=== PATIENT | male | born 1955 | race Caucasian/White ===

== ENCOUNTER 2022-07-15 11:26 | Emergency (ER) | payer OTHER, MEDICARE ==
--- OUTSIDE RECORDS SUMMARY | 2022-07-15 11:31 | XMS REPORT | Continuity of Care Document ---
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 RELEASE 14:59: mouth at [place] ([facility] 11 bedtime. Medica l 500 mg SR Branch tablet glimepiride Yes 2mg Take 2 mg U nivers (AMARYL) 1 7-20 by mouth ity o f mg tablet 14:59: daily with [place] 11 breakfast. Medical Branch IBUPROFEN, Yes 400mg 400 mg. Uni vers BULK, MISC 7-20 ity of 14:59: [place] [address] Medical Branch glimepiride Yes 2mg Take 2 mg U nivers (AMARYL) 1 7-20 by mouth ity o f mg tablet 14:59: daily with [place] [address] [facility] TR Yes 500mg Take 500 Uni vers SUSTAINED 7-20 mg by ity of RELEASE 14:59: mouth at [place] ([facility] 11 bedtime. Medica l 500 mg SR Branch tablet [facility] Yes 500mg Take 500 Uni vers SUSTAINED 7-20 mg by ity of RELEASE 14:59: mouth at [place] ([facility] 11 bedtime. Medica l 500 mg SR Branch tablet IBUPROFEN, Yes 400mg 400 mg. Uni vers BULK, MISC 7-20 ity of 14:59: [place] [address] Medical [place] glimepiride Yes 2mg Take 2 mg U nivers (AMARYL) 1 7-20 by mouth ity o f mg tablet 14:59: daily with [place] 11 breakfast. [facility] Take 500 Uni vers SUSTAINED 7-20 mg by ity of RELEASE 14:59: mouth at [place] ([facility] 11 bedtime. Medica l 500 mg SR Branch tablet IBUPROFEN, Yes 400mg 400 mg. Uni vers BULK, MISC 7-20 ity of 14:59: [place] [address] Medical Branch glimepiride Yes 2mg Take 2 mg U nivers (AMARYL) 1 7-20 by mouth ity o f mg tablet 14:59: daily with [place] [address] [facility] TR Yes 500mg Take 500 Uni vers SUSTAINED 7-20 mg by ity of RELEASE 14:59: mouth at [place] ([facility]) 11 bedtime. Medica l 500 mg SR Branch tablet IBUPROFEN, Yes 400mg 400 mg. Uni vers BULK, MISC 7-20 ity of 14:59: [place] [address] Medical [place] glimepiride Yes 2mg Take 2 mg U nivers (AMARYL) 1 7-20 by mouth ity o f mg tablet 14:59: daily with [place] 11 breakfast. [facility] TR Yes 500mg Take 500 Uni vers SUSTAINED 7-20 mg by ity of RELEASE 14:59: mouth at [place] ([facility]) 11 bedtime. Medica l 500 mg SR Branch tablet IBUPROFEN, Yes 400mg 400 mg. Uni vers BULK, MISC 7-20 ity of 14:59: [place] 11 Medical Branch glimepiride Yes 2mg Take 2 mg U nivers (AMARYL) 1 7-20 by mouth ity o f mg tablet 14:59: daily with [place] 11 breakfast. [facility] TR Yes 500mg Take 500 Uni vers SUSTAINED 7-20 mg by ity of RELEASE 14:59: mouth at [place] ([facility]) 11 bedtime. Medica l 500 mg SR Branch tablet IBUPROFEN, Yes 400mg 400 mg. Uni vers BULK, MISC 7-20 ity of 14:59: [place] 11 Medical Branch glimepiride Yes 2mg Take 2 mg U nivers (AMARYL) 1 7-20 by mouth ity o f mg tablet 14:59: daily with [place] [address] [facility] TR Yes 500mg Take 500 Uni vers SUSTAINED 7-20 mg by ity of RELEASE 14:59: mouth at [place] ([facility]) 11 bedtime. Medica l 500 mg SR Branch tablet IBUPROFEN, Yes 400mg 400 mg. Uni vers BULK, MISC 7-20 ity of 14:59: [place] 11 Medical Branch glimepiride Yes 2mg Take 2 mg U nivers (AMARYL) 1 7-20 by mouth ity o f mg tablet 14:59: daily with [place] [address] [facility] TR Yes 500mg Take 500 Uni vers SUSTAINED 7-20 mg by ity of RELEASE 14:59: mouth at [place] ([facility]) 11 bedtime. Medica l 500 mg SR Branch tablet hydrocodone Yes 1{tbl} Take 1 Tab Univers -acetaminop 7-20 by mouth ity of hen (NORCO) 00:00: every 6 Mehdi as 10-325 mg 00 (six) Medical tablet hours as Branch needed for Pain. hydrocodone 2011- Yes 1{tbl} Take 1 Tab Univers -acetaminop 7-20 by mouth ity of [place] ([place]) 00:00: every 6 Mehdi as 10-325 mg 00 (six) Medical tablet hours as Branch needed for Pain. hydrocodone 2011- Yes 1{tbl} Take 1 Tab Univers -acetaminop 7-20 by mouth ity of hen ([place]) 00:00: every 6 Mehdi as 10-325 mg 00 (six) Medical tablet hours as Branch needed for Pain. hydrocodone Yes 1{tbl} Take 1 Tab Univers -acetaminop 7-20 by mouth ity of [place] ([place]) 00:00: every 6 Mehdi as 10-325 mg 00 (six) Medical tablet hours as Branch needed for Pain. hydrocodone Yes 1{tbl} Take 1 Tab Univers -acetaminop 7-20 by mouth ity of [place] ([place]) 00:00: every 6 Mehdi as 10-325 mg 00 (six) Medical tablet hours as Branch needed for Pain. hydrocodone Yes 1{tbl} Take 1 Tab Univers -acetaminop 7-20 by mouth ity of [place] ([place]) 00:00: every 6 Mehdi as 10-325 mg 00 (six) Medical tablet hours as Branch needed for Pain. hydrocodone Yes 1{tbl} Take 1 Tab Univers -acetaminop 7-20 by mouth ity of [place] ([place]) 00:00: every 6 Mehdi as 10-325 mg 00 (six) Medical tablet hours as Branch needed for Pain. hydrocodone Yes 1{tbl} Take 1 Tab Univers -acetaminop 7-20 by mouth ity of [place] ([place]) 00:00: every 6 Mehdi as 10-325 mg 00 (six) Medical tablet hours as Branch needed for Pain. hydrocodone 2011-0 Yes 1{tbl} Take 1 Tab Univers -acetaminop 7-20 by mouth ity of [place] ([place]) 00:00: every 6 Mehdi as 10-325 mg 00 (six) Medical tablet hours as Branch needed for Pain. hydrocodone 2011- Yes 1{tbl} Take 1 Tab Univers -acetaminop 7-20 by mouth ity of [place] ([place]) 00:00: every 6 Mehdi as 10-325 mg 00 (six) Medical tablet hours as Branch needed for Pain. hydrocodone 2011-0 Yes 1{tbl} Take 1 Tab Univers -acetaminop 7-20 by mouth ity of [place] ([place]) 00:00: every 6 Mehdi as 10-325 mg 00 (six) Medical tablet hours as Branch needed for Pain. hydrocodone Yes 1{tbl} Take 1 Tab Univers -acetaminop 7-20 by mouth ity of [place] ([place]) 00:00: every 6 Mehdi as 10-325 mg 00 (six) Medical tablet hours as Branch needed for Pain. hydrocodone Yes 1{tbl} Take 1 Tab Univers -acetaminop 7-20 by mouth ity of [place] ([place]) 00:00: every 6 Mehdi as 10-325 mg 00 (six) Medical tablet hours as Branch needed for Pain. hydrocodone Yes 1{tbl} Take 1 Tab Univers -acetaminop 7-20 by mouth ity of [place] ([place]) 00:00: every 6 Mehdi as 10-325 mg 00 (six) Medical tablet hours as Branch needed for Pain. hydrocodone Yes 1{tbl} Take 1 Tab Univers -acetaminop 7-20 by mouth ity of hen ([place]) 00:00: every 6 Mehdi as 10-325 mg 00 (six) Medical tablet hours as Branch needed for Pain. hydrocodone Yes 1{tbl} Take 1 Tab Univers -acetaminop 7-20 by mouth ity of hen ([place]) 00:00: every 6 Mehdi as 10-325 mg 00 (six) Medical tablet hours as Branch needed for Pain. hydrocodone 2011- Yes 1{tbl} Take 1 Tab Univers -acetaminop 7-20 by mouth ity of hen ([place]) 00:00: every 6 Mehdi as 10-325 mg 00 (six) Medical tablet hours as Branch needed for Pain. hydrocodone 2011- Yes 1{tbl} Take 1 Tab Univers -acetaminop 7-20 by mouth ity of hen ([place]) 00:00: every 6 Mehdi as 10-325 mg 00 (six) Medical tablet hours as Branch needed for Pain. hydrocodone 2011- Yes 1{tbl} Take 1 Tab Univers -acetaminop 7-20 by mouth ity of hen ([place]) 00:00: every 6 Mehdi as 10-325 mg 00 (six) Medical tablet hours as Branch needed for Pain. Vital Signs Vital Name Observation Time Observation Value Comments Source Systolic blood 2020-03-23 14:14:00 109 mm[Hg] [facility] of [place] pressure Medical Branch Diastolic blood 2020-03-23 14:14:00 67 mm[Hg] Unive rsity of [facility] Medical Branch Heart rate 2020-03-23 14:14:00 73 /min [facility] ty [facility] [place] Medical Branch Body height 2020-03-23 14:14:00 177.8 cm Universi ty of [facility] Branch Body weight 2020-03-23 14:14:00 108.863 kg Universi ty of [facility] Branch BMI 2020-03-23 14:14:00 34.44 kg/m2 Universi ty of [facility] Branch Systolic blood 2020-03-16 14:25:00 99 mm[Hg] Univer sity of [place] pressure [facility] Branch Diastolic blood 2020-03-16 14:25:00 66 mm[Hg] Unive rsity of [facility] [place] Branch Heart rate 2020-03-16 14:25:00 86 /min [facility] ty [facility] [place] [facility] Branch Body height 2020-03-16 14:25:00 177.8 cm [facility] [place] [facility] Branch Body weight 2020-03-16 14:25:00 108.863 kg [facility] [place] [facility] Branch BMI 2020-03-16 14:25:00 34.44 kg/m2 Universi ty of [facility] Branch Systolic blood 2020-03-09 14:33:00 90 mm[Hg] Univer sity of [facility] Medical Branch Diastolic blood 2020-03-09 14:33:00 61 mm[Hg] Unive rsity of [place] pressure Medical Branch Heart rate 2020-03-09 14:33:00 65 /min [facility] [place] [facility] Body height 2020-03-09 14:33:00 177.8 cm [facility] [place] [facility] Branch Body weight 2020-03-09 14:33:00 108.863 kg [facility] [place] [facility] Branch BMI 2020-03-09 14:33:00 34.44 kg/m2 Universi ty of [facility] Branch Systolic blood 2020-03-04 14:17:00 101 mm[Hg] [facility]iver [facility]ity of [place] pressure Medical Branch Diastolic blood 2020-03-04 14:17:00 63 mm[Hg] Unive rsity of [place] pressure [facility] Branch Heart rate 2020-03-04 14:17:00 84 /min [facility] [place] [facility] Branch Body height 2020-03-04 14:17:00 176.5 cm Universi ty of [facility] Branch Body weight 2020-03-04 14:17:00 108.863 kg Universi ty of [facility] Branch BMI 2020-03-04 14:17:00 34.93 kg/m2 Universi ty of [facility] Branch Systolic blood 2020-02-26 14:27:00 98 mm[Hg] [facility]ity of [place] pressure Medical Branch Diastolic blood 2020-02-26 14:27:00 62 mm[Hg] Unive rsity of [facility] [place] Branch Heart rate 2020-02-26 14:27:00 79 /min Universi ty of [facility] Branch Body weight 2020-02-26 14:27:00 108.863 kg Universi ty of [facility] Branch BMI 2020-02-26 14:27:00 35.44 kg/m2 Universi ty of [facility] Branch Systolic blood 2020-02-19 13:58:00 109 mm[Hg] [facility] of [place] pressure Medical Branch Diastolic blood 2020-02-19 13:58:00 71 mm[Hg] Unive rsity of [facility] Branch Heart rate 2020-02-19 13:58:00 52 /min [facility] [place] [facility] Branch Body weight 2020-02-19 13:58:00 108.863 kg [facility] [place] [facility] BMI 2020-02-19 13:58:00 35.44 kg/m2 Universi ty of [facility] Branch Body height 2020-01-28 19:09:00 175.3 cm Universi ty of [facility] Branch Body weight 2020-01-28 19:09:00 108.863 kg [facility] [place] [facility] Branch BMI 2020-01-28 19:09:00 35.44 kg/m2 Universi ty of [facility] Branch Procedures Procedure Date / Time Performing Clinician Source Performed MEDICATION CORRESPONDENCE 2020-01-30 05:01:00 Doctor Unassigned, [facility] [place] Medical Branch ASSIGNMENT OF BENEFITS 2020-01-28 19:08:17 [facility] [place] [facility] Encounters Start End Encounter Admission Attending Care Care Encounter Source Date/Time Date/Time Type Type Clinicians Facility Department ID 2021-01-20 2021-01-20 Telephone Rao [facility] [id number] [id number] Univers 00:00:00 00:00:00 Sharon Castro [facility] [id number] it y of [place] [id number] Mehdi as Professio [phone] Me dical nal [address] [place] [address] 2020-08-16 2020-08-16 Patient Kvng [facility] [id number] Univers 00:00:00 00:00:00 Outreach Kye [facility] [id number] i ty of [facility] [id number] [id number] Me dical [address] [place] 2020-03-23 2020-03-23 Office [facility] [id number] Univers 09:07:38 09:46:42 Visit [facility] [id number] it y of Surgical [id number] Mehdi as Specialti [phone] Me dical es 198 [facility] 2020-03-23 2020-03-23 Outpatient R YEIMI [facility] [id number] Univers 09:30:00 09:30:00 [facility] 2020-03-16 2020-03-16 Office [facility] [id number] Univers 09:18:51 10:04:26 Visit [facility] [id number] it y of Surgical [id number] Mehdi as Specialti [id number] Me dical es 198 [facility] 2020-03-16 2020-03-16 [facility] [id number] Univers 09:30:00 09:30:00 [facility] 2020-03-09 2020-03-09 [facility] [id number] Univers 09:20:52 09:48:51 Visit [facility] [id number] it y of Surgical [id number] Mehdi as Specialti [phone] Me dical es 198 [facility] 2020-03-09 2020-03-09 [facility] [id number] Univers 09:30:00 09:30:[address] [facility] 2020-03-04 2020-03-04 Office [facility] 1.2.840.114 [id number] Univers 09:15:11 09:43:21 Visit [facility] [id number] it y of Surgical [id number] Mehdi as Specialti [phone] Me dical es 198 [facility] 2020-03-04 2020-03-04 [facility] [id number] Univers 09:30:00 09:30:[address] [facility] 2020-02-26 2020-02-26 Office [facility] [id number] Univers 09:18:16 10:12:10 Visit [facility] [id number] it y of Surgical [id number] Mehdi as Specialti [id number] Co dical es 198 [facility] 2020-02-26 2020-02-26 [facility] [id number] Univers 09:30:00 09:30:[address] [facility] 2020-02-19 2020-02-19 Office [facility] 1.2.840.114 [id number] Univers 08:47:38 09:07:50 Visit [facility] [id number] it y of Surgical [id number] Mehdi as Specialti [phone] Me dical es 198 [facility] 2020-02-19 2020-02-19 [facility] [id number] Univers 09:00:00 09:00:[address] [facility] 2020-01-30 2020-01-30 Orders Doctor REYES 1.2.840.114 [id number] Univers 00:00:00 00:00:00 Only Unassigned, KAMLESH [id number] ity of [place] [facility] [id number] Mehdi as [phone] [facility] 009 Branch 2020-01-28 2020-01-28 [facility] [id number] Univers 14:26:21 23:59:00 Encounter Sharon Castro [facility] [id number] ity of Surgical [id number] Mehdi as Specialti [id number] Co dical es 809 [facility] 2020-01-28 2020-01-28 [facility] [id number] Univers 14:05:13 14:50:56 Visit Sharon Castro [facility] [id number] it y of Surgical [id number] Mehdi as Specialti [phone] Co dical es 198 [facility] 2020-01-28 2020-01-28 [facility] [id number] Univers 14:15:00 14:15:[address] [facility] 2020-01-28 2020-01-28 Orders Doctor ERIC [id number] Univers 00:00:00 00:00:00 Only Unassigned, KAMLESH [id number] ity of [place] [facility] [id number] Mehdi as [phone] [place] [address] Branch Results This patient has no known results.
[2022-07-15] MEDS ORDERED: D10W 250 ML IV ONE (11:42)
[2022-07-15 12:20] LABS: Absolute Lymphocytes (CBC) 1.4 K/uL (0.7-4.9); Hematocrit 42.1 % (39.6-49.0); Lymphocytes % 17.6 % (15.3-44.8); MCV 90.9 fL (80-100); MPV 9.7 fL (7.6-11.3); RBC Red Blood Cell Count 4.63 M/uL (4.33-5.43)
[2022-07-15 12:31] LABS: Protime INR 1.14
[2022-07-15] MEDS ORDERED: NA CHLORIDE 0.9% 1,000 ML ONE (12:34)
--- NOTE | 2022-07-15 12:50 | RAD REPORT ---
EXAM DESCRIPTION: CT - Head Brain Wo Cont - 07/15/2022 12:38 pm CLINICAL HISTORY: Syncope COMPARISON: None. TECHNIQUE: Computed axial tomography of the head was obtained. IV contrast was not requested. All CT scans are performed using dose optimization technique as appropriate and may include automated exposure control or mA/KV adjustment according to patient size. FINDINGS: An intracranial bleed is not seen . The ventricles are normal in caliber. No significant hypodense areas within the brain visualized No extra-axial fluid collection is noted. Fluid within the sinuses/ mastoids is not seen. IMPRESSION: No acute intracranial abnormality is seen. If patient's symptoms persist MRI of the bra in would be recommended.
[2022-07-15 12:51] LABS: Potassium 4.3 mmol/L (3.5-5.1); Troponin High Sensitivity 7.7 pg/mL (<58.9)
--- NOTE | 2022-07-15 14:47 | ER ---
Nurse's Notes [facility] Name: Yaya Montanez Age: 66 yrs Sex: Male : 1955 Arrival Date: 07/15/2022 Time: 11:39 Bed 7 Private MD: Diagnosis: Syncope;Hypoglycemia, unspecified;Persistent atrial fibrillation;Hypotension, unspecified Presentation: 07/15 11:39 Chief complaint: EMS states: [employer] [employer]. NOTED bp HYPOTENSIVE AND HYPOGLEMIIC ON SCENE, INITIAL BGL 72. Coronavirus screen: At this time, the client does not indicate any symptoms associated with coronavirus-19. Ebola Screen: No symptoms or risks identified at this time. Initial Sepsis Screen: Does the patient meet any 2 criteria? No. Patient's initial sepsis screen is negative. Does the patient have a suspected source of infection?. Risk Assessment: Do you want to hurt yourself or someone else? Patient reports no desire to harm self or others. Onset of symptoms is unknown. 11:39 Method Of Arrival: EMS: [facility] bp 11:39 Acuity: CHRISTY 3 bp Triage Assessment: 12:06 General: Appears in no apparent distress. comfortable, Behavior is calm, cooperative, bp appropriate for age. Pain: Denies pain. EENT: No deficits noted. Neuro: Level of Consciousness is awake, alert, obeys commands, Oriented to Appropriate for age. Cardiovascular: No deficits noted. Respiratory: No deficits noted. GI: No signs and/or symptoms were reported involving the gastrointestinal system. : No signs and/or symptoms were reported regarding the genitourinary system. Derm: No deficits noted. Musculoskeletal: No deficits noted. - Immunization history:: Adult Immunizations up to date. - Social history:: Smoking status: Patient denies any tobacco usage or history of. - Family history:: not pertinent. - Hospitalizations: : No recent hospitalization is reported. Screenin:06 [facility] ED Fall Risk Assessment (Adult) History of falling in the last 3 months, bp including since admission No falls in past 3 months (0 pts). Abuse screen: Denies threats or abuse. Denies injuries from another. Nutritional screening: No deficits noted. Tuberculosis screening: No symptoms or risk factors identified. Assessment: 12:06 General: SEE TRIAGE NOTE. bp 12:45 Reassessment: PT RETURNED FROM CT. bp 13:12 Reassessment: PO CHALLENGE PENDING. bp 14:45 Reassessment: PT REFUSING ADMIT OR FURTHER HEALTHCARE ACTIVITIES. COUNSELLED TO REMAIN bp BY STAFF AND PROVIDER, BUT REFUSING. PT ADVISED TO RETURN TO THE ER IF S/S RETURN OR WORSEN. Vital Signs: 12:06 BP 78 / 49; Pulse 66; Resp 12; Pulse Ox 100% ; bp 13:12 BP 88 / 59; Pulse 63; Resp 18; Pulse Ox 100% ; bp 14:44 BP 105 / 69; Pulse 73; Resp 13; Pulse Ox 100% ; bp ED Course: 11:39 Patient arrived in ED. mm9 11:39 Cal Wilkes, RN is Primary Nurse. bp 11:51 Pro Lawrence MD is Attending Physician. rn 11:54 Triage completed. bp 11:55 Diet: Patient is NPO. mm9 11:55 Patient has correct armband on for positive identification. Placed in gown. Bed in low mm9 position. Call light in reach. Side rails up X 1. Adult w/ patient. Warm blanket given. Pillow given. Client placed on continuous cardiac and pulse oximetry monitoring. NIBP monitoring applied. equipment monitor phototypesetting on. Pulse ox on. NIBP on. 11:56 Maintain EMS IV. Dressing intact. Good blood return noted. Site clean \T\ dry. mm9 12:06 Arm band placed on. bp 12:12 Initial lab(s) drawn, by me, sent to lab. EKG done, by ED staff, reviewed by Pro Lawrence MD. 12:13 BNP Sent. mm9 12:13 Basic Metabolic Panel Sent. mm9 12:13 CBC with Diff Sent. mm9 12:13 High Sensitivity Troponin Sent. mm9 12:13 Protime (+inr) Sent. mm9 12:13 Ptt, Activated Sent. mm9 12:40 CT Head Brain wo Cont In Process Unspecified. EDMS 14:45 Carmine Green MD is Referral Physician. rn 15:02 No provider procedures requiring assistance completed. IV discontinued, intact, bp bleeding controlled, No redness/swelling at site. Pressure dressing applied. Administered Medications: 12:40 Drug: NS 0.9% 1000 ml Route: IV; Rate: 1000 ml; Site: left antecubital; bp Outcome: 14:46 Discharge ordered by . rn 15:02 Discharged to home ambulatory. bp 15:02 Condition: stable 15:02 Discharge instructions given to patient, Instructed on discharge instructions, follow up and referral plans. Demonstrated understanding of instructions, follow-up care. 15:03 Patient left the ED. bp Signatures: Dispatcher [employer] EDMS Pro Lawrence MD MD rn Peltier, Brian, RN RN bp Martinez, Maria mm9
--- NOTE | 2022-07-15 14:47 | EDPHYS ---
Physician Documentation [facility] Name: Yaya Montanez Age: 66 yrs Sex: Male : 1955 Arrival Date: 07/15/2022 Time: 11:39 Bed 7 Private MD: ED Physician Pro Lawrence HPI: 07/15 12:05 This 66 yrs old Male presents to ER via EMS with complaints of low blood sugar, syncope.rn 12:06 The patient has experienced syncope. Onset: The symptoms/episode began/occurred just rn prior to arrival. Duration: This was a single episode. Associated injury: The patient did not suffer any apparent associated injury. Associated signs and symptoms: Pertinent positives: confusion, blurred vision, Pertinent negatives: abdominal pain, chest pain, headache, shortness of breath, weakness. Current symptoms: Currently, the patient is not experiencing any symptoms. It is unknown whether or not the patient has had similar symptoms in the past. The patient has not recently seen a physician. Pt and family report blurred vision, happens almost daily for months, was seated watching a game when exhibited decreased responsiveness, some twitching, unknown duration, 911 called, noted to have blood sugars of 70s and 60s, given glucose and now back to baseline. NO chest pain/sob/abd pain. No complaints currently. No blurred vision.. - Immunization history:: Adult Immunizations up to date. - Social history:: Smoking status: Patient denies any tobacco usage or history of. - Family history:: not pertinent. - Hospitalizations: : No recent hospitalization is reported. ROS: 12:06 Constitutional: Negative for fever, chills, and weight loss, Eyes: Negative for injury, rn pain, redness, and discharge, Neck: Negative for injury, pain, and swelling, Cardiovascular: Negative for chest pain, and edema, Respiratory: Negative for shortness of breath, cough, wheezing, and pleuritic chest pain, Abdomen/GI: Negative for abdominal pain, nausea, vomiting, diarrhea, and constipation, Back: Negative for injury and pain, MS/Extremity: Negative for injury and deformity, Skin: Negative for injury, rash, and discoloration, Neuro: Negative for headache, numbness, tingling Exam: 12:06 Constitutional: This is a well developed, well nourished patient who is awake, alert, rn and in no acute distress. Head/Face: Normocephalic, atraumatic. Eyes: Pupils equal round and reactive to light, extra-ocular motions intact. Cardiovascular: Regular rate, irregular rhythm Respiratory: No increased work of breathing, no retractions or nasal flaring. Abdomen/GI: soft, non-tender Skin: Warm, dry MS/ Extremity: Pulses equal, no cyanosis. Neuro: Awake and alert, GCS 15, oriented to person, place, time, and situation. Cranial nerves II-XII grossly intact. Motor strength 5/5 in all extremities. Sensory grossly intact. Cerebellar exam normal. 15:00 ECG was reviewed by the Attending Physician. rn Vital Signs: 12:06 BP 78 / 49; Pulse 66; Resp 12; Pulse Ox 100% ; bp 13:12 BP 88 / 59; Pulse 63; Resp 18; Pulse Ox 100% ; bp 14:44 BP 105 / 69; Pulse 73; Resp 13; Pulse Ox 100% ; bp MDM: 11:51 Patient medically screened. rn 14:39 Differential Diagnosis: cardiac arrhythmia, cerebrovascular accident, emotional rn response, idiopathic syncope, seizure, transient ischemic attack, vasovagal episode, heart failure, new afib, cardiogenic shock, AMI, dehydration, medication side effect, hypoglycemia. Data reviewed: vital signs, nurses notes, lab test result(s), EKG, radiologic studies, CT scan, and as a result, I will admit patient. Consideration of Admission/Observation Patient was admitted/placed on observation. Escalation of care including admission/observation considered. I considered the following discharge prescriptions or medication management in the emergency department Medications were administered in the Emergency Department. See MAR. Test considered but Not performed: Other Details CTA considered and ordered but creatinine too high. Counseling: I had a detailed discussion with the patient and/or guardian regarding: the historical points, exam findings, and any diagnostic results supporting the discharge/admit diagnosis, lab results, radiology results, the need for further work-up and treatment in the hospital. Response to treatment: the patient's condition has returned to base line, the patient is now symptom free, and as a result, I will admit patient. Refusal of service: The patient/guardian displays adequate decision making capability and despite a detailed discussion of alternatives, benefits, risks, and consequences refuses: Admission to the hospital for further work-up and treatment. ED course: Pt with new onset afib, likely CHF, with syncopal episode today. CT head neg. Spoke with patient with family in room, he states will absolutely not stay in hospital, understands risks of worsening and even . TOld him he needs to be admitted for cardiac evaluation, anticoagulation, evaluation of renal failure, and hypoglycemic episode. Family wants him to stay but patient insists on leaving, family states there is no changing his mind. Strict return precautions and scenarios given/explained to patient and family. Will dc home per his wishes. . 07/15 11:51 Order name: Glucose, Ancillary Testing; Complete Time: 12:34 EDMS 07/15 11:53 Order name: Basic Metabolic Panel; Complete Time: 12:56 rn 07/15 11:53 Order name: CBC with Diff; Complete Time: 12:34 rn 07/15 11:53 Order name: High Sensitivity Troponin; Complete Time: 12:56 rn 07/15 11:53 Order name: Protime (+inr); Complete Time: 12:34 rn 07/15 11:53 Order name: Ptt, Activated; Complete Time: 12:34 rn 07/15 11:53 Order name: EKG; Complete Time: 11:54 rn 07/15 11:53 Order name: CT Head Brain wo Cont; Complete Time: 12:56 rn 07/15 11:53 Order name: Head Angio CT rn 07/15 11:53 Order name: BNP; Complete Time: 12:56 rn 07/15 12:52 Order name: Diet Regular; Complete Time: 12:53 mm9 07/15 11:53 Order name: Accucheck; Complete Time: 11:54 rn 07/15 11:53 Order name: Cardiac monitoring; Complete Time: 11:54 rn 07/15 11:53 Order name: EKG - Nurse/Tech; Complete Time: 11:55 rn 07/15 11:53 Order name: IV Saline Lock; Complete Time: 11:55 rn 07/15 11:53 Order name: Labs collected and sent; Complete Time: 12:13 rn 07/15 11:53 Order name: NPO; Complete Time: 12:13 rn 07/15 11:53 Order name: O2 Per Protocol; Complete Time: 12:13 rn 07/15 11:53 Order name: O2 Sat Monitoring; Complete Time: 12: rn 07/15 11:53 Order name: Stroke Swallow Screen; Complete Time: 12:13 rn 07/15 11:53 Order name: PO challenge; Complete Time: 12:45 rn EC:00 Rate is 60 beats/min. Rhythm is irregularly irregular. Left axis deviation noted. QRS rn is positive in lead I and negative in lead aVF. [place] interval is normal. QRS interval is normal. QT interval is normal. No Q waves. T waves are Normal. No ST changes noted. Clinical impression: Atrial Fibrillation. Interpreted by me. Reviewed by me. Administered Medications: 12:40 Drug: NS 0.9% 1000 ml Route: IV; Rate: 1000 ml; Site: left antecubital; bp Disposition Summary: 07/15/22 14:46 Discharge Ordered Location: Home rn Problem: an ongoing problem rn Symptoms: have improved rn Condition: Stable rn Diagnosis - Syncope rn - Hypoglycemia, unspecified rn - Persistent atrial fibrillation rn - Hypotension, unspecified rn Followup: rn - With: Carmine Green MD - When: As needed - Reason: Recheck today's complaints, Re-evaluation by your physician Discharge Instructions: - Discharge Summary Sheet rn - Atrial Fibrillation rn - Hypoglycemia rn - Hypotension rn - Syncope rn - Blood Glucose Monitoring, Adult rn Forms: - Medication Reconciliation Form rn - Thank You Letter rn - Antibiotic sleeve turner - Prescription Opioid Use rn Signatures: Dispatcher [employer] EDMS Pro Lawrence MD MD rn Peltier, Brian, RN RN bp Corrections: (The following items were deleted from the chart) 13:48 11:59 Neck Angio+CT.RAD.BRZ ordered. EDMS EDMS 13:48 12:01 Head angio ordered. EDMS EDMS
[2022-07-15 15:07] VITALS: O2SAT 100
[2022-07-15 15:10] VITALS: BP 105/69
== END 2022-07-15 15:03 | disposition home or self-care (01) ==
LOC: ER 11:26
DX: R55 Syncope and collapse (principal); E16.2 Hypoglycemia, unspecified; I95.9 Hypotension, unspecified; I48.19 Other persistent atrial fibrillation
CPT/HCPCS: 85025; 80048; 36415; 85610; 82565; 82947; 85730; 84484; 83880; 70450; J7030; 93005; 99284